=== PATIENT | female | born 1995 | race Caucasian/White ===

== ENCOUNTER 2017-06-14 09:36 | Day surgery (SDC) | payer BC ==
[2017-06-13 14:50] VITALS: BMI 33.5
[2017-06-14] MEDS ORDERED: Oxymetazoline HCl 0.05% ( 15 ML ) ONE ×2 (10:42→12:37)
[2017-06-14 11:31] LABS: Hematocrit 39.8 % (36.0-47.0)
[2017-06-14] MEDS ORDERED: Fentanyl 100 MCG/2 ML VIAL ONE ×2 (12:36→14:22)
[2017-06-14] MEDS ORDERED: Midazolam HCl 2 mg/2 ml Vial ONE (12:36)
[2017-06-14] MEDS ORDERED: Lidocaine 1% w/Epinephrine 1:200K 30 ML VIAL ONE (12:37)
[2017-06-14] MEDS ORDERED: Lidocaine 1% PF 5 ML VIAL ONE (13:21)
[2017-06-14] MEDS ORDERED: Dexamethasone 20 MG/5 ML VIAL ONE (13:21)
[2017-06-14] MEDS ORDERED: Propofol 200 MG/20 ML VIAL ONE (13:21)
[2017-06-14] MEDS ORDERED: Ondansetron HCl/PF 4 MG/2 ML Vial ONE (13:21)
[2017-06-14] MEDS ORDERED: Promethazine HCl 25 MG/ML VIAL ONE (14:23)
[2017-06-14] MEDS ORDERED: Promethazine HCl 25 MG/ML VIAL IM/IV PRN (14:40)
[2017-06-14] MEDS ORDERED: Ondansetron HCl/PF 4 MG/2 ML Vial IVP PRN (14:40)
[2017-06-14] MEDS ORDERED: Non-Formulary Medication 1 EACH PO PRN (14:40)
--- NOTE | 2017-06-18 10:46 | OP ---
PREOPERATIVE DIAGNOSES: Chronic sinusitis and bilateral obstructive inferior turbinate hypertrophy. POSTOPERATIVE DIAGNOSES: Chronic sinusitis and bilateral obstructive inferior turbinate hypertrophy . PROCEDURES PERFORMED: 1. Bilateral nasal endoscopy with maxillary antrostomy. 2. Bilateral nasal endoscopy with total ethmoidectomy. 3. Bilateral nasal endoscopy with frontal sinusotomy. 4. Bilateral nasal endoscopy with sphenoidotomy. 5. Bilateral nasal endoscopy with submucosal resection of inferior turbinates. DESCRIPTION OF THE PROCEDURE: After consent was obtained, the patient was identified, brought to [facility] operating room, and placed on the operating room table in the supine position. Consent was obtain ed, notifying the patient of the possibility of additional infections, bleeding, brain injury, and e ye/orbital injury. The patient was placed on the operating room table, and general endotracheal an esthesia and intravenous access was obtained. The patient was then positioned, prepped and draped f or endoscopic sinus surgery. Nasal preparation included trimming nasal vestibular hairs and sprayin g in topical Afrin. We then placed Afrin topical solution on nasal pledgets and strategically locat ed them intranasally. The perinasal mucosa was injected with 1% lidocaine with 1:100,000 epinephrin e in the submucoperichondrial plane of the septum, lateral nasal wall, and anterior to the uncinate. The patient was then prepped and draped in a sterile fashion and positioned for endoscopic sinus s urgery. The uncinate was then identified and the extent of the uncinate was appreciated by out-fracturing [facility] uncinate with the ball-tip probe. We then used the sickle blade to disarticulate the uncinate fro m the lateral nasal wall. This was then removed with straight biting and upbiting punches with the remaining shrouds of mucosa and bony septum removed with the micro-debrider. The natural os of the maxillary sinus was then identified and enlarged with the maxillary punches and back biting forceps. The anterior face of the ethmoid bulla was entered and with the micro-debrider, dissection continued posteriorly to the ground lamella. The limits of dissection in cluded the insertion of the middle turbinate, medial orbital wall, and base of skull. We similarly identified the frontal recess and removed shrouds of bone and debris in that region to obtain patenc y into the agger nasi region and frontal recess. We then entered the ground lamella and its anteroi nferior aspect and proceeded posteriorly, opening the posterior ethmoid air-cell system. Again, the limits of dissection included the base of skull and medial orbital wall. The anterior face of the sphenoid was identified and entered in its extreme anteroinferior aspect. A sphenoid punch was then used to enlarge the sphenoidotomy and no injury to the optic nerve or internal carotid artery occurred. After local anesthesia was infiltrated into the submucoperichondrial plane, a standard Duryea incis ion was made with a #15 blade down to the level of the septal cartilage. The caudal elevator was us ed to elevate the mucoperichondrium from the underlying cartilage. We then proceeded beyond the bon y cartilaginous junction and elevated the bony periosteum as well. Great attention was paid to the spur to prevent rent formation in the septal flap. A transcartilaginous incision was then made, whil e preserving an adequate dorsal and caudal cartilaginous strut for tip support. The deformed cartil age was removed and disarticulated from the bony cartilaginous junction and maxillary crest. This w as placed in saline and would later be crushed and returned to the mucoperichondrial envelope. We t hen elevated the contralateral periosteum from the bony cartilaginous region and removed the deforme d portions of the bone and bony spurs. The cartilage was then crushed and placed back into the muco perichondrial envelope and the mucosa was re-approximated with a quilting stitch composed of rapidly absorbent gut suture. The Duryea incision was also closed with interrupted gut suture. At the co mpletion of the case, Johnson splints were placed and suture secured to the caudal septum. At this point, we then turned our attention to the contralateral side and proceeded with endoscopic sinus surgery. At the completion of the case, Rice keel splints were plac ed in the ethmoid cavities after the ethmoidectomy. There were no complications. The patient lucien ated the procedure well and was discharged to the recovery room in stable condition prior to return to the preoperative Day Stay with ultimate discharge home. Prescriptions for pain medication and an tibiotics were provided. The patient received intramuscular Depo-Medrol during the case.
== END 2017-06-14 14:20 | disposition home or self-care (01) ==
LOC: SDC 09:36
PROVIDERS: ATTEND Specialist
PROC: 09TU4ZZ Resection of Right Ethmoid Sinus, Percutaneous Endoscopic Approach (ICD-10-PCS; principal; 2017-06-14)
PROC: 09TV4ZZ Resection of Left Ethmoid Sinus, Percutaneous Endoscopic Approach (ICD-10-PCS; principal; 2017-06-14)
PROC: 099Q4ZZ Drainage of Right Maxillary Sinus, Percutaneous Endoscopic Approach (ICD-10-PCS; principal; 2017-06-14)
PROC: 099R4ZZ Drainage of Left Maxillary Sinus, Percutaneous Endoscopic Approach (ICD-10-PCS; principal; 2017-06-14)
PROC: 09TL4ZZ Resection of Nasal Turbinate, Percutaneous Endoscopic Approach (ICD-10-PCS; principal; 2017-06-14)
PROC: 09BX4ZZ Excision of Left Sphenoid Sinus, Percutaneous Endoscopic Approach (ICD-10-PCS; principal; 2017-06-14)
PROC: 09BS4ZZ Excision of Right Frontal Sinus, Percutaneous Endoscopic Approach (ICD-10-PCS; principal; 2017-06-14)
PROC: 09BW4ZZ Excision of Right Sphenoid Sinus, Percutaneous Endoscopic Approach (ICD-10-PCS; principal; 2017-06-14)
PROC: 09BT4ZZ Excision of Left Frontal Sinus, Percutaneous Endoscopic Approach (ICD-10-PCS; principal; 2017-06-14)
DX: J32.9 Chronic sinusitis, unspecified (principal); J34.3 Hypertrophy of nasal turbinates; J34.2 Deviated nasal septum; F90.9 Attention-deficit hyperactivity disorder, unspecified type; F42.9 Obsessive-compulsive disorder, unspecified; F32.9 Major depressive disorder, single episode, unspecified; Z79.2 Long term (current) use of antibiotics; Z79.899 Other long term (current) drug therapy; Z90.89 Acquired absence of other organs; Z98.890 Other specified postprocedural states; Z87.81 Personal history of (healed) traumatic fracture; Z82.49 Family history of ischemic heart disease and other diseases of the circulatory system
CPT/HCPCS: 84703; 85014; 96374; J0131; J1100; J2001; J2250; J2405; J2550; J2704; J3010

== ENCOUNTER 2017-09-15 19:51 | Emergency (ER) | payer BC ==
[2017-09-15 20:48] LABS: #Basophils 0.1 thou/uL (0.0-0.2); #Eosinphils 0.4 thou/uL (0.0-0.7); #Lymphocytes 2.4 thou/uL (1.20-3.40); #Monocytes 0.8 thou/uL (0.11-0.59); #Neutrophils 4.4 thou/uL (1.40-6.50); %Basophils 1.1 % (0.0-1.0); %Eosinophils 4.6 % (0.0-10.0); %Lymphocytes 29.6 % (28.0-48.0); %Monocytes 10.2 % (0.0-4.0); Mean Platelet Volume 6.8 fL (7.4-10.4); White Blood Cell (WBC) Count 8.1 thou/uL (4.8-10.8)
[2017-09-15 21:05] LABS: ALT (SGPT) 31 U/L (8-55); AST (SGOT) 26 U/L (5-34); Alkaline Phosphatase 53 U/L (40-150); Anion Gap 15 mmol/L (10-20); BUN (Urea Nitrogen) 10 mg/dL (7.0-18.7); Bilirubin, Total 0.2 mg/dL (0.2-1.2); CK (CPK) 69 U/L (29-168); Calc. Creatinine Clearance 0 mL/min (70-130); Carbon Dioxide 23 mmol/L (22-29); Chloride 105 mmol/L (98-107); Estimated GFR-MDRD Greater than 90; Globulin 2.5 g/dL (2.4-3.5); Protein, Total 6.1 g/dL (6.0-8.3)
--- NOTE | 2017-09-15 21:14 | RAD ---
CHEST PA AND LATERAL TWO VIEWS: 09/15/17 HISTORY: 22-year-old female with dyspnea and bilateral leg swelling. The heart size is within normal limits. The lungs are clear. Bronchovascular markings are slightly pr ominent bilaterally, but no confluent pneumonia, overt edema or pleural effusion. IMPRESSION: No evidence of pneumonia or other acute process. POS: [facility]
[2017-09-15 21:32] LABS: Bilirubin Negative (Negative); Blood, Urine Negative (Negative); Glucose, Urine (Dipstick) Negative (Negative); Ketone, Urine Negative (Negative); Nitrite Negative (Negative); Protein, Urine (Dipstick) Negative (Neg-Trace); Urobilinogen 0.2 mg/dL (0.2-1.0)
[2017-09-15 21:40] LABS: Amphetamine Detected (NotDetected); Methadone Not Detected (NotDetected); Methamphetamine Not Detected (NotDetected)
--- NOTE | 2017-09-15 23:54 | ULT ---
BILATERAL LOWER EXTREMITY VENOUS DUPLEX ULTRASOUND INCLUDING COLOR AND SPECTRAL DOPPLER IMAGIN09/15/17 HISTORY: 22-year-old female with bilateral lower extremity pain and swelling and right calf redness. Exam performed from groin to ankle including visualized greater saphenous, common femoral, superficia l femoral, profunda femoral, popliteal, trifurcation, and posterior tibial vein regions. There is pha sic flow at all levels with normal compressibility and normal augmentation. No intraluminal thrombus. IMPRESSION: No evidence for deep venous thrombosis. POS: [facility]
[2017-09-16] MEDS ORDERED: Sulfameth/Trimethoprim DS 800-160mg TAB ONE (00:11)
[2017-09-16] MEDS ORDERED: Cephalexin 500 MG CAP ONE (00:11)
== END 2017-09-16 00:17 | disposition home or self-care (01) ==
LOC: SCSER 19:51
DX: L03.115 Cellulitis of right lower limb (principal); F41.9 Anxiety disorder, unspecified; F32.9 Major depressive disorder, single episode, unspecified; I95.9 Hypotension, unspecified
CPT/HCPCS: 36415; 71020; 80053; 80306; 81003; 81025; 82550; 85025; 93005; 93970

== ENCOUNTER 2017-10-04 02:17 | Emergency (ER) | payer BC ==
[2017-10-04] MEDS ORDERED: diphenhydrAMINE 50 MG/ML VIAL ONE (02:29)
[2017-10-04] MEDS ORDERED: Famotidine/PF 20 mg/2ml Vial ONE (02:29)
[2017-10-04] MEDS ORDERED: EPINEPHrine 1 MG/ML AMP ONE (02:33)
[2017-10-04] MEDS ORDERED: methylPREDNISolone Sod Succ/PF 125 MG/2 ML VIAL ONE (02:37)
[2017-10-04] MEDS ORDERED: Ondansetron HCl/PF 4 MG/2 ML Vial ONE (03:59)
[2017-10-04] MEDS ORDERED: Ondansetron ODT 4 MG TAB ONE (05:35)
== END 2017-10-04 05:30 | disposition home or self-care (01) ==
LOC: SCSER 02:17
DX: L50.0 Allergic urticaria (principal); F41.9 Anxiety disorder, unspecified; F32.9 Major depressive disorder, single episode, unspecified
CPT/HCPCS: 94640; 96361; 96374; 96375; J0171; J1200; J2405; J2930; J7620; Q0162; S0028

== ENCOUNTER 2018-01-19 21:22 | Emergency (ER) | payer BC ==
[2018-01-19] MEDS ORDERED: Ketorolac Tromethamine 30 MG/ML VIAL ONE (22:16)
[2018-01-19 23:07] LABS: #Basophils 0.1 thou/uL (0.0-0.2); #Eosinphils 0.3 thou/uL (0.0-0.7); #Lymphocytes 2.9 thou/uL (1.20-3.40); #Monocytes 0.6 thou/uL (0.11-0.59); #Neutrophils 5.1 thou/uL (1.40-6.50); %Basophils 1.5 % (0.0-1.0); %Eosinophils 3.8 % (0.0-10.0); %Lymphocytes 31.9 % (28.0-48.0); %Neutrophils 55.8 % (31.0-61.0); Hemoglobin 13.2 g/dL (12.0-16.0); Mean Corpuscular HGB CONC 34.4 g/dL (32.0-36.0); Mean Corpuscular Hemoglobin 27.9 pg (25.0-35.0); Platelet Count 285 thou/uL (130-400); RBC Distribution Width 11.7 % (11.5-14.5); Red Blood Cell (RBC) Count 4.74 mill/uL (4.00-5.20); White Blood Cell (WBC) Count 9.2 thou/uL (4.8-10.8)
[2018-01-19 23:18] LABS: ALT (SGPT) 19 U/L (8-55); AST (SGOT) 20 U/L (5-34); Albumin 3.8 g/dL (3.5-5.0); Alkaline Phosphatase 64 U/L (40-150); Anion Gap 15 mmol/L (10-20); BUN (Urea Nitrogen) 13 mg/dL (7.0-18.7); Bilirubin, Total 0.2 mg/dL (0.2-1.2); Calc. Creatinine Clearance 0 mL/min (70-130); Calcium 9.3 mg/dL (7.8-10.44); Carbon Dioxide 25 mmol/L (22-29); Chloride 104 mmol/L (98-107); Estimated GFR-MDRD Greater than 90; Globulin 2.9 g/dL (2.4-3.5); Glucose 104 mg/dL (70-105); Potassium 3.9 mmol/L (3.5-5.1); Protein, Total 6.7 g/dL (6.0-8.3); Sodium 140 mmol/L (136-145)
--- NOTE | 2018-01-19 23:18 | RAD ---
PORTABLE CHEST ONE VIEW: 01/19/18 at 11:11 p.m. HISTORY: Cough, fever. Patient had fifth metatarsal surgery on Sunday. FINDINGS: The heart size is normal. The lungs are well expanded without focal areas of consolidation, pneumotho races or pleural effusions. IMPRESSION: No radiographic evidence of cardiopulmonary process. POS: [facility]
--- NOTE | 2018-01-19 23:21 | RAD ---
LEFT FOOT THREE VIEWS: 01/19/18 HISTORY: Left foot pain, weakness and fever. FINDINGS/IMPRESSION: There are postop changes with metallic hardware in the proximal aspect of the fifth metatarsal in goo d position and alignment. No acute fracture or dislocation or bony destruction is seen. There is a we ll circumscribed benign appearing lesion in the calcaneus. POS: [facility]
[2018-01-19] MEDS ORDERED: Morphine 5 MG/ML SYRINGE ONE ×2 (23:54→23:59)
[2018-01-20] MEDS ORDERED: cefTRIAXone\\ROCEPHIN 2 GM VIAL ONE (01:22)
[2018-01-20] MEDS ORDERED: Sodium Chloride 0.9% 100 ML ONE (01:26)
[2018-01-20] MEDS ORDERED: Morphine 5 MG/ML SYRINGE ONE (02:01)
== END 2018-01-20 02:57 | disposition home or self-care (01) ==
LOC: SCSER 21:22
DX: G89.18 Other acute postprocedural pain (principal); M79.672 Pain in left foot; F41.9 Anxiety disorder, unspecified; F32.9 Major depressive disorder, single episode, unspecified; F90.9 Attention-deficit hyperactivity disorder, unspecified type; F42.9 Obsessive-compulsive disorder, unspecified; Z79.899 Other long term (current) drug therapy
CPT/HCPCS: 71045; 80053; 83605; 85025; 87040; 96361; 96365; 96375; 96376; J2270; J0696; J1885; J7050

== ENCOUNTER 2019-01-13 09:03 | Emergency (ER) | payer OTHER ==
[2019-01-13] MEDS ORDERED: Ondansetron PF 4 MG/2 ML Vial ONE (09:23)
[2019-01-13] MEDS ORDERED: Ketorolac Tromethamine 30 MG/ML VIAL ONE (09:23)
[2019-01-13 10:02] LABS: Eosinophils 2 % (0-10); Hemoglobin 12.7 g/dL (12.0-16.0); Lymphocytes 33 % (21-51); MDiff Complete? YES; Mean Corpuscular HGB CONC 32.7 g/dL (32.0-36.0); Mean Corpuscular Volume 82.6 fL (78.0-98.0); Mean Platelet Volume 10.1 fL (7.4-10.4); Monocytes 11 % (0-10); Neutrophil 52 % (42-75); Platelet Count 252 thou/uL (130-400); RBC Distribution Width 12.8 % (11.5-14.5); Reactive Lymphocytes 2 % (0-10); Red Blood Cell (RBC) Count 4.72 mill/uL (4.20-5.40); White Blood Cell (WBC) Count 7.8 thou/uL (4.8-10.8)
[2019-01-13 10:03] LABS: ALT (SGPT) 11 U/L (8-55); AST (SGOT) 16 U/L (5-34); Albumin 3.9 g/dL (3.5-5.0); Alkaline Phosphatase 74 U/L (40-150); Anion Gap 14 mmol/L (10-20); BUN (Urea Nitrogen) 6 mg/dL (7.0-18.7); Bilirubin, Total 0.2 mg/dL (0.2-1.2); Calc. Creatinine Clearance 0 mL/min (70-130); Calcium 9.1 mg/dL (7.8-10.44); Carbon Dioxide 19 mmol/L (22-29); Chloride 108 mmol/L (98-107); Estimated GFR-MDRD Greater than 90; Globulin 3.1 g/dL (2.4-3.5); Glucose 96 mg/dL (70-105); Lipase 17 U/L (8-78); Potassium 3.6 mmol/L (3.5-5.1); Sodium 137 mmol/L (136-145)
[2019-01-13 10:09] LABS: Bilirubin Negative (Negative); Blood, Urine Negative (Negative); Clarity Slightly Cloudy (Clear); Glucose, Urine (Dipstick) Negative (Negative); Leukocyte Negative (Negative); Nitrite Negative (Negative); Protein, Urine (Dipstick) Negative (Neg-Trace); Specific Gravity, Urine 1.015 (1.005-1.030); Urobilinogen 0.2 mg/dL (0.2-1.0)
[2019-01-13 10:11] LABS: Pregu Control Background? CLEAR/WHITE (CLR/WHITE); Pregu Control Bar Appear? YES (CONTROL BAR); Specific Gravity 1.015 (1.002-1.036)
[2019-01-13 10:13] LABS: Pregnancy Test - Urine (BHCG) Negative (Negative)
[2019-01-13 10:20] LABS: Amphetamine Detected (NotDetected); Barbiturates Screen Not Detected (NotDetected); Benzodiazepine Screen Detected (NotDetected); Cocaine Metabolite Screen Not Detected (NotDetected); Medtox Control Line Valid? VALID (VALID); Methadone Not Detected (NotDetected); Methamphetamine Not Detected (NotDetected); Opiate Screen Not Detected (NotDetected); Oxycodone Screen Not Detected (NotDetected); Phencyclidine (PCP) Not Detected (NotDetected); THC/Cannabinoid Screen Not Detected (NotDetected); Tricyclic Screen Not Detected (NotDetected)
--- NOTE | 2019-01-13 10:43 | CT ---
CT Abdomen Pelvis WO Con: 01/13/2019 9:20 AM INDICATION: Abdominal pain with nausea. COMPARISON: None. TECHNIQUE: Multiple CT images were obtained abdomen and pelvis without IV contrast. Axial, coronal re formatted images were constructed from the raw data. FINDINGS: This examination is limited for the evaluation of solid organs and vascular structures due to the lac k of intravenous contrast which is standard for urinary calculus assessment CT. The liver is within normal limits. The spleen is within normal limits. The pancreas is within normal limits. The adrenal glands are within normal limits. No retroperitoneal lymphadenopathy. No mesenteric lymphadenopathy. No free fluid in the abdomen. {If abnormal is selected on any item, describe abnormality as either free text or use a sub-menu macr o} Right kidney & ureter: - Kidney - No calculi. - Ureter - No calculi. - Obstruction / hydronephrosis - No Left kidney & ureter: - Kidney - No calculi.Size range not applicable. - Ureter - No calculi. Size not applicable. - Obstruction / hydronephrosis - No Other: No other significant abnormalities of the upper urinary tract. The unopacified bowel is within normal limits. There is a normal appendix in the right lower quadrant of the abdomen. No free fluid in the pelvis. No pelvic lymphadenopathy. No inguinal lymphadenopathy. There is a 3.4 cm hypodense cyst within the right adnexa suspicious for follicular cyst Urinary bladder: - No calculi. Size not applicable. - Bladder is distended adequately. - Wall is thin. IMPRESSION: 1. No urinary tract calculi. 2. 3.4 cm right adnexal cyst.
== END 2019-01-13 11:15 | disposition home or self-care (01) ==
LOC: SCSER 09:03
DX: R10.9 Unspecified abdominal pain (principal); F41.9 Anxiety disorder, unspecified; F32.9 Major depressive disorder, single episode, unspecified; F90.9 Attention-deficit hyperactivity disorder, unspecified type; F42.9 Obsessive-compulsive disorder, unspecified; Z79.899 Other long term (current) drug therapy
CPT/HCPCS: 74176; 80053; 80306; 81003; 81025; 83605; 83690; 84484; 85025; 93005; 96361; 96374; 96375; J1885; J2405

== ENCOUNTER 2019-01-23 09:45 | Outpatient (CLI) | payer OTHER ==
--- NOTE | 2019-01-23 11:06 | ULT ---
RIGHT UPPER QUADRANT ULTRASOUND: Date: 01/23/19 HISTORY: Abdominal pain in the right upper quadrant x1 week. FINDINGS: Real-time imaging of the right upper quadrant shows a normal appearing gallbladder. Common duct is 3 mm. The technologist described a negative ultrasound Sharp's sign. Liver parenchyma shows no focal f indings. Right kidney is normal in size and not obstructed. Pancreas is partially obscured. IMPRESSION: Unremarkable gallbladder ultrasound. POS: [facility]
== END 2019-01-23 09:46 | disposition home or self-care (01) ==
LOC: SCSULT 09:45
PROVIDERS: ATTEND Family Medicine
DX: R10.13 Epigastric pain (principal)
CPT/HCPCS: 76705

== ENCOUNTER 2020-12-06 14:36 | Outpatient (CLI) | payer OTHER | END 2020-12-06 14:37 | disposition home or self-care (01) | LOC: BICRAD 14:36 | PROVIDERS: ATTEND Family Medicine | DX: S93.401D Sprain of unspecified ligament of right ankle, subsequent encounter (principal) ==

== ENCOUNTER 2022-03-13 17:30 | Outpatient (CLI) | payer BC | END 2022-03-13 17:31 | disposition home or self-care (01) | LOC: SLEEPLAB 17:30 | PROVIDERS: ATTEND Internal Medicine | DX: G47.33 Obstructive sleep apnea (adult) (pediatric) (principal); G47.00 Insomnia, unspecified; F41.9 Anxiety disorder, unspecified; F32.9 Major depressive disorder, single episode, unspecified; G47.10 Hypersomnia, unspecified | CPT/HCPCS: 95800 ==

== ENCOUNTER 2025-09-04 20:38 | Emergency (ER) | payer BC ==
[~2025-09-04 20:38] MED LIST: Iopamidol-370 76% 500 ML MDV (1 ML CHARGE) ONE
[2025-09-04 21:37] LABS: #Basophils 0.06 10x3/uL (0.0-0.2); #Eosinophils 0.47 10x3/uL (0.0-0.7); #Monocytes 0.73 10x3/uL (0.11-0.59); #Neutrophils 4.23 10x3/uL (1.40-6.50); %Basophils 0.7 % (0.0-1.0); %Eosinophils 5.5 % (0.0-10.0); %Lymphocytes 35.6 % (21.0-51.0); %Monocytes 8.5 % (0.0-10.0); %Neutrophils 49.3 % (42.0-75.0); Hematocrit 34.9 % (36.0-47.0); Hemoglobin 12.0 g/dL (12.0-16.0); Mean Corpuscular Hemoglobin 28.2 pg (27.0-31.0); Mean Corpuscular Volume 82.1 fL (78.0-98.0); Platelet Count 310 10x3/uL (130-400); Red Blood Cell (RBC) Count 4.25 mill/uL (4.20-5.40); White Blood Cell (WBC) Count 8.57 10x3/uL (4.8-10.8)
[2025-09-04 21:49] LABS: INR-International Normal Ratio 1.1; PTT 27.9 sec (22.9-36.1); Prothrombin Time 13.8 sec (12.0-14.7)
[2025-09-04 21:58] LABS: ALT (SGPT) 17 U/L (Less than 34); AST (SGOT) 20 U/L (11-34); Albumin 4.2 g/dL (3.1-4.5); Alkaline Phosphatase 38 U/L (40-110); Anion Gap 9 mmol/L (10-20); BUN (Urea Nitrogen) 18 mg/dL (7.0-18.7); Bilirubin, Total 0.2 mg/dL (0.3-1.2); Calc. Creatinine Clearance 0 mL/min (70-130); Calcium 9.5 mg/dL (7.8-10.44); Carbon Dioxide 22 mmol/L (22-29); Chloride 107 mmol/L (98-107); Globulin 2.8 g/dL (2.4-3.5); Glucose 104 mg/dL (70-105); Potassium 4.0 mmol/L (3.5-5.1); Sodium 134 mmol/L (136-145)
[2025-09-04 22:30] LABS: BHCG - Serum Negative (NEGATIVE); Pregs Control Background? CLEAR/WHITE (CLR/WHITE); Pregs Control Bar Appear? YES (CONTROL BAR)
[2025-09-04] MEDS ORDERED: Vancomycin 1 GM/200 ML (FROZEN) BAG ONE (23:42)
[2025-09-05 00:57] LABS: Bacteria/HPF None Seen HPF (None Seen); CAUTI Indications for Culture Dysuria,urgency,freq; Glucose, Urine (Dipstick) Normal (Negative); Leukocyte 500 Leu/uL (Negative); Protein, Urine (Dipstick) Negative (Neg-Trace); RBC/HPF 0-3 HPF (0-3); Specific Gravity, Urine 1.027 (1.002-1.036)
[2025-09-05 00:58] LABS: Urine Culture Reflex Yes Yes
== END 2025-09-05 07:35 | disposition home or self-care (01) ==
LOC: ERS 20:38
DX: A41.9 Sepsis, unspecified organism (principal); N39.0 Urinary tract infection, site not specified; L03.311 Cellulitis of abdominal wall
CPT/HCPCS: 36415; 71045; 74177; 80053; 81001; 83605; 84484; 84703; 85025; 85610; 85730; 87040; 87086; 96365; 96367; 96375; J2270; J2543; J3373; Q9967